=== PATIENT | male | born 1990 | race Caucasian/White ===

== ENCOUNTER 2017-12-12 05:56 | Inpatient (IN) ==
[~2017-12-12] VITALS: Ht 172.7 cm; Wt 76.2 kg
[2017-12-12] MEDS ORDERED: CEFAZOLIN SODIUM/DEXTROSE,ISO 50 ML IV ONE (06:41)
[2017-12-12] MEDS ORDERED: BUPIVACAINE 0.5 % PF 150 MG/30 ML VIAL ONE (07:17)
[2017-12-12] MEDS ORDERED: ANESTHESIA TRAY IN PYXIS 1 EA TRAY MC ONE (07:17)
[2017-12-12] MEDS ORDERED: LIDOCAINE HCL/PF 1% 30 ML SDV ONE (07:18)
[2017-12-12] MEDS ORDERED: MIDAZOLAM HCL 2 MG/2ML VIAL ONE (07:33)
[2017-12-12] MEDS ORDERED: FENTANYL PF 100MCG/2ML AMPUL ONE (07:34)
[2017-12-12] MEDS ORDERED: BUPIVACAINE MPF 0.5% W/EPI INJ 30 ML VIAL ONE (07:35)
[2017-12-12] MEDS ORDERED: BACITRACIN 50000 UNITS/VIAL ONE ×2 (07:40→10:32)
[2017-12-12] MEDS ORDERED: SODIUM CHLORIDE IRRIG IR ONE (09:00)
[2017-12-12] MEDS ORDERED: TRANEXAMIC ACID IR ONE (09:00)
[2017-12-12] MEDS ORDERED: HYDROMORPHONE 1 MG/1 ML DISP.SYRIN ONE (11:28)
[2017-12-12] MEDS ORDERED: ONDANSETRON HCL/PF 4 MG/2 ML VIAL ONE (11:51)
[2017-12-12 12:00] VITALS: BP 130/82
--- NOTE | 2017-12-12 12:00 | NUR ---
ADMITTED PT FROM [facility] S/P RT HUMERUS ORIF BY DR SIMONS.PT IS YOUNG MAN ALERT AND ORIENTED X4.VERBALLY RESPONSIVE.WITH RT ARM SLING PRESENT.RESPIRATIONS NON LABORED IN ROOM AIR.FEELS NAUSEOUS.WITH MILD RT ARM PAIN AND FEELS NAUSEOUS.PT RECEIVED DILAUDID AND ZOFRAN FROM [facility]. PT VOMITED 100 ML YELLOW LIQUID SUBSTANCE.ORIENTED TO THE USE OF CALL LIGHT.WITH IV H/L IN LEFT HAND G 18 WITH IVF LR INFUSING WELL TO CONSUME.GAVE ICE CHIPS.PT'S MOM AT BEDSIDE.CALL LIGHT PLACED WITHIN REACH.
[2017-12-12] MEDS ORDERED: oxyCODONE/APAP (5/325 MG) 1 UDTAB TABLET PO PRN (12:30)
[2017-12-12] MEDS: MORPHINE SULFATE INJ 4 MG/ML DISP.SYRIN IV PRN ×3 (13:05→22:44)
[2017-12-12] MEDS ORDERED: HYDR-4384 PO (13:32)
[2017-12-12] MEDS: oxyCODONE/APAP (5/325 MG) 1 UDTAB TABLET PO PRN (14:47)
--- NOTE | 2017-12-12 15:10 | NUR ---
PT AMBULATED WITH P.T. ALONG THE HALLWAY.TOLERATED WELL.
[2017-12-12] MEDS: DOCUSATE SODIUM 250 MG CAPSULE PO SCH ×2 (15:17→20:54)
[2017-12-12] MEDS: ANCEF 1 GM/50 ML D5W IV SCH ×4 (16:55→22:42)
--- NOTE | 2017-12-12 18:00 | NUR ---
PT RESTING IN BED DENYING ANY PAIN OR DISTRESS.CALL LIGHT PLACED WITHIN REACH. MOM AT BEDSIDE.
--- NOTE | 2017-12-12 18:10 | NUR ---
SEEN BY DR GÓMEZ HOSPITALIST.
[2017-12-12] MEDS: ONDANSETRON HCL/PF 4 MG/2 ML VIAL IV PRN ×2 (19:05→22:42)
[2017-12-12 20:00] VITALS: BP 134/63
[2017-12-12 20:24] VITALS: BP 134/65
--- NOTE | 2017-12-12 21:03 | NUR ---
recieved alert and orientated mother at the bedside and does the speaking for him. explained to them about the pain medication and that I would be checking hoim frequently to monitor his pain. large snack served and consumed 100%. smiling encouraging fluids.
[2017-12-13] MEDS: MORPHINE SULFATE INJ 4 MG/ML DISP.SYRIN IV PRN ×2 (02:56→06:56)
[2017-12-13] MEDS: ONDANSETRON HCL/PF 4 MG/2 ML VIAL IV PRN ×2 (02:56→06:55)
--- NOTE | 2017-12-13 05:36 | NUR ---
MR. HERRMANN IS ALERT AND ORIENTATED SLEPT 8 HRS OF THE 12 HOURS. MEDICATED X2 WITH MORPHINE 4 MG IVP AND EFFECTIVE FOR THE "BURNING PAIN" HE DESCRIBED AND WAS EFFECTIVE. GIRLFRIEND STAYED THE NIGHT ATTENTIVE IN HIS CARE. RIGHT HAND WARM AND FINGERS MOVING SLING IN PLACE
[2017-12-13] MEDS: ANCEF 1 GM/50 ML D5W IV SCH ×2 (07:03)
--- NOTE | 2017-12-13 07:20 | NUR ---
MS/RN Patient received Patient received from hotel night auditor. Sleeping soundly at this time, pain medication given by previous nurse at 0655. Family at bedside, call ligth within reach, will continue to monitor and ensure safety.
[2017-12-13 08:00] VITALS: BP 128/74
[2017-12-13] MEDS: DOCUSATE SODIUM 250 MG CAPSULE PO SCH ×2 (09:13→16:13)
[2017-12-13] MEDS: oxyCODONE/APAP (5/325 MG) 1 UDTAB TABLET PO PRN (09:53)
--- NOTE | 2017-12-13 10:00 | NUR ---
MS/RN Pain Complaining of pain to right shoulder from surgery yesterday. Percocet two tablets administered for pain scale 7/10. Will monitor effectiveness.
--- NOTE | 2017-12-13 11:00 | NUR ---
MS/RN S/B Dr Altamirano Seen by Dr Altamirano - may discharge to home when cleared by ortho.
[2017-12-13] MEDS: oxyCODONE/APAP (5/325 MG) 1 UDTAB TABLET PO SCH ×3 (12:50→20:38)
--- NOTE | 2017-12-13 14:09 | NUR ---
MS/RN S/B Ortho Seen by ortho - patient to remain in hospital overnight, first dressing change tomorrow.
[2017-12-13 15:52] VITALS: BP 121/66
--- NOTE | 2017-12-13 18:24 | NUR ---
MS/RN End note Seen by OT - educated as to range of motion exercises, both patient and daughter stated understanding. Pain well controlled at this time. Will endorse to retail shift manager.
--- NOTE | 2017-12-13 19:15 | NUR ---
RN NOTES RECEIVED PT AWAKE IN BED , ON ROOM AIR AND TOLERATED WELL. RIGHT ARM COVERED WITH BANDAGE, CLEAN, DRY AND INTACT AND IMMOBILIZED ON ARM SLING. PAIN AT TOLERABLE LEVEL AT THIS TIME. ABLE TO MOVE ALL FINGERS ON THE AFFECTED ARM. PT IS REQUESTING FOR SLEEPING PILL BECAUSE HE DID NOT SLEEP WELL LAST NIGHT, WILL PAGED THE DOCTOR PRINTING MACHINE OPERATOR . KEPT PT SAFE, WITH CALL LIGHT WITH IN REACH. WILL CONTINUE TO MONITOR PT.
[2017-12-13 20:00] VITALS: BP 108/56
--- NOTE | 2017-12-13 20:52 | NUR ---
RN NOTES PT IS REQUESTING FOR SLEEPING PILL, HE SAID THAT HE DID NOT SLEEP WELL LAST NIGHT. DANNY GOLDSTEIN WAS PAGED AND ASKED FOR AN ORDER FOR SLEEPING PILL, NEW ORDER WAS MADE, AMBIEN 5 MG TAB PO X1. NOTED AND CARRIED OUT. WILL CONTINUE TO MONITOR PT.
[2017-12-13 22:00] VITALS: BP 108/56
[2017-12-13] MEDS ORDERED: ZOLPIDEM TARTRATE 5 MG TABLET PO ONE (22:00)
--- NOTE | 2017-12-13 22:06 | NUR ---
RN NOTES PT IS DUE FOR AMBIEN 5MG TAB., PT IS SOUND ASLEEP AT THIS TIME. PT WAKEN UP AND SAID THAT HE'S GOOD FOR NOW AND MAYBE HE DOESN'T NEED IT FOR TONIGHT. WILL CONTINUE TO MONITOR PT.
[2017-12-14] MEDS: oxyCODONE/APAP (5/325 MG) 1 UDTAB TABLET PO SCH ×4 (00:38→13:27)
--- NOTE | 2017-12-14 06:18 | NUR ---
RN NOTES PT SLEPT WELL OVERNIGHT, VITAL SIGNS STABLE, AFEBRILE. KEPT PAIN AT TOLERABLE LEVEL WITH CURRENT REGIMEN. RIGHT ARM KEPT IMMOBILIZED AND ELEVATED ON A SLING. ALL NEEDS ATTENDED. WILL ENDORSE TO MORNING RN FOR CONTINUITY OF CARE.
--- NOTE | 2017-12-14 07:15 | NUR ---
RN OPENING NOTES RECEIVED PT. IN BED A&OX4. BREATHING UNLABORED ON ROOM AIR. NO S/S OF ACUTE DISTRESS. PT. IS WEARING A SLING ON HIS RIGHT ARM FOR IMMOBILIZATION, AND RIGHT EXTREMITY IS WRAPPED IN A MACEY BANDAGE. BED IS IN LOWEST, AND LOCKED POSITION. 2 SIDE RAILS UP AND INSTRUCTED PT. TO USE CALL LIGHT FOR ASSISTANCE. WILL CONTINUE TO ASSESS AND MONITOR.
[2017-12-14 08:00] VITALS: BP 112/65
[2017-12-14] MEDS: DOCUSATE SODIUM 250 MG CAPSULE PO SCH (09:25)
--- NOTE | 2017-12-14 13:00 | NUR ---
PT. RECEIVED A PRESCRIPTION FROM THE PA FOR PERCOCET 5MG PO Q 4-6 HOURS 40 TABS.
--- NOTE | 2017-12-14 13:30 | NUR ---
TAMPING MACHINE OPERATOR PT. WAS DISCHARGE IN STABLE CONDITION. DISCHARGE INSTRUCTIONS WERE PROVIDED WITH EDUCATION. PRESCRIPTION AND MEDICATION EDUCATION WAS PROVIDED, PT. VERBALIZED UNDERSTANDING. BELONGINGS LIST WAS CHECKED AND SIGNED. DISCHARGE PAPERS WERE SIGNED. PT. WAS GIVEN A DISC WITH IMAGES FROM RADIOLOGY PER PT. REQUEST. ID BAND WAS REMOVED. A PICTURE WAS TAKEN OF INCISION SITE AND WOUND CARE WAS PERFORMED. NO S/S OF INFECTION NOTED. PT. LEFT WITH MACEY BANDAGE WRAPPED AROUND HIS RIGHT ARM AND IN A SLING TO IMMOBILIZE IT. PT. LEFT WITH HIS MOTHER WITH ALL DISCHARGE PAPERS, AND LEFT IN A CAR.
== END 2017-12-14 13:39 | disposition home or self-care (01) | DRG 494 ==
LOC: DS 05:56 → MED 12:12
PROVIDERS: ADMIT Student in an Organized Health Care Education/Training Program; ATTEND Internal Medicine
PROC: 0PSF04Z Reposition Right Humeral Shaft with Internal Fixation Device, Open Approach (ICD-10-PCS; principal; 2017-12-12 07:30)
DX: S42.351A Displaced comminuted fracture of shaft of humerus, right arm, initial encounter for closed fracture (principal); Y93.89 Activity, other specified; X58.XXXA Exposure to other specified factors, initial encounter; Y93.18 Activity, surfing, windsurfing and boogie boarding; Y92.89 Other specified places as the place of occurrence of the external cause
CPT/HCPCS: 73060-TC; 87081-TC; A4217; A4565; A6402; C1713; G0378; J0690; J1100; J1170; J1885; J2250; J2270; J2405; J2704; J3010; J3490; J7050; J7060; J7120; Z7610